=== PATIENT | female | born 1960 | race Caucasian/White ===

== ENCOUNTER 2018-12-04 22:54 | Emergency (ER) | payer BC ==
[~2018-12-04] VITALS: Ht 170.2 cm; Wt 68.2 kg
[~2018-12-04 22:54] MED LIST: MECL-111 PO; METH4TAB81 PO
--- NOTE | 2018-12-04 23:01 | NUR ---
SEIZURE PADS PLACED
[2018-12-04] MEDS ORDERED: LORazepam 2 mg/ml vial IV ONE (23:10)
[2018-12-04] MEDS ORDERED: ondansetron/PF 4mg/2ml inj IV ONE (23:20)
[2018-12-04 23:23] LABS: BASOPHILS % (AUTO) 0.4 % (0-1); EOSINOPHILS # (AUTO) 0.1 X10'3 (0-0.9); EOSINOPHILS % (AUTO) 1.4 % (0-6); HEMOGLOBIN 14.7 g/dl (12.0-16.0); LYMPHOCYTES % (AUTO) 23.2 % (21-51); MEAN CORPUSCULAR HEMOGLOBIN 31.4 PG (27.0-31.0); MEAN CORPUSCULAR HGB CONC 34.2 g/dL (33.0-36.5); MEAN PLATELET VOLUME 10.6 FL (7.4-10.4); MONOCYTES # (AUTO) 0.5 X10'3 (0-0.9); NEUTROPHILS # (AUTO) 6.1 X10'3 (1.8-7.7); PLATELET COUNT 100 X10'3 (140-440); RED BLOOD COUNT 4.68 X10'6 (4.20-5.60); RED CELL DISTRIBUTION WIDTH 12.2 % (11.5-14.5); WHITE BLOOD COUNT 8.8 X10'3 (4.5-11.0)
[2018-12-04 23:27] LABS: ALANINE AMINOTRANSFERASE 37 U/L (12-78); ALBUMIN 3.9 G/DL (3.4-5.0); ALBUMIN/GLOBULIN RATIO 1.2 (1.1-1.5); ALKALINE PHOSPHATASE 78 IU/L (46-116); ANION GAP 13 (8-16); ASPARTATE AMINO TRANSFERASE 30 U/L (10-37); BILIRUBIN,TOTAL 0.3 MG/DL (0.1-1.0); BLOOD UREA NITROGEN 16 MG/DL (7-18); BUN/CREATININE RATIO 15.2 (6.6-38.0); CALCIUM 9.8 MG/DL (8.5-10.1); CHLORIDE 106 MMOL/L (99-107); CREATININE 1.05 MG/DL (0.40-0.90); GLUCOSE 119 MG/DL (70-104); LIPASE 197 U/L (73-393); MAGNESIUM 2.1 MG/DL (1.5-2.4); SODIUM 141 MMOL/L (135-145); TOTAL CARBON DIOXIDE 21.8 MMOL/L (24-32); TOTAL PROTEIN 7.2 G/DL (6.4-8.2); eGFR 54 ML/MIN
[2018-12-05] MEDS ORDERED: ONDA4TAB6 PO (00:12)
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
[2018-12-05] MEDS ORDERED: normal saline 1000ML IV soln IVB ONE (00:40)
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
--- NOTE | 2018-12-05 04:42 | NUR ---
CALLED YASHIRA MIRELES FOR [facility] AT 04:42. THEY WILL HAVE [employer] HERE AROUND 05:00-05:15.
[2018-12-05 04:54] VITALS: BP 116/56
== END 2018-12-05 05:29 | disposition home or self-care (01) ==
LOC: ER 22:55
DX: K52.9 Noninfective gastroenteritis and colitis, unspecified (principal); R32 Unspecified urinary incontinence; R56.9 Unspecified convulsions; E03.9 Hypothyroidism, unspecified; F10.99 Alcohol use, unspecified with unspecified alcohol-induced disorder; Z98.890 Other specified postprocedural states; Z79.899 Other long term (current) drug therapy; Y90.9 Presence of alcohol in blood, level not specified
CPT/HCPCS: 71045; 80053; 83690; 83735; 84100; 85025; 96361; 96374; 96375; 99284; J2060; J2405; J7030

== ENCOUNTER 2023-10-29 14:30 | Emergency (ER) | payer BC, OTHER ==
[~2023-10-29] VITALS: Ht 170.2 cm; Wt 77.3 kg
[~2023-10-29 14:30] MED LIST changes: -MECL-111 PO; +MECL-302 PO; +ONDA4TAB6 PO
[2023-10-29 14:35] VITALS: TEMP 98
[2023-10-29] MEDS: ibuprofen tablet 400 MG TABLET PO ONE (15:59)
[2023-10-29 16:06] VITALS: BP 128/76; PULSE 98; RESP 16; O2SAT 99
== END 2023-10-29 16:11 | disposition home or self-care (01) ==
LOC: ER 14:30
DX: G40.802 Other epilepsy, not intractable, without status epilepticus (principal); E03.9 Hypothyroidism, unspecified; Z79.52 Long term (current) use of systemic steroids; Z79.899 Other long term (current) drug therapy; Z72.89 Other problems related to lifestyle; Z98.890 Other specified postprocedural states
CPT/HCPCS: 70450; 99284; J7030; A6449

== ENCOUNTER 2023-11-04 10:03 | Emergency (ER) | payer OTHER ==
[~2023-11-04] VITALS: Ht 170.2 cm; Wt 78.1 kg
[2023-11-04 10:14] VITALS: BP 144/87; PULSE 93; RESP 18; O2SAT 98
[2023-11-04] MEDS: LIDOcaine 1% W/epiNEPHrine 1:100,000 20ml vial SQ ONE (13:22)
[2023-11-04] MEDS ORDERED: CEPH-585 PO (13:59)
[2023-11-04 14:38] VITALS: TEMP 98.1
== END 2023-11-04 14:40 | disposition home or self-care (01) ==
LOC: ER 10:04
DX: L91.0 Hypertrophic scar (principal); E03.9 Hypothyroidism, unspecified; Z79.52 Long term (current) use of systemic steroids; Z79.899 Other long term (current) drug therapy; Z98.890 Other specified postprocedural states; Z72.89 Other problems related to lifestyle
CPT/HCPCS: 10060; 73080; 99283

== ENCOUNTER 2024-03-10 04:50 | Emergency (ER) | payer OTHER ==
[~2024-03-10] VITALS: Ht 170.2 cm; Wt 81.4 kg
[2024-03-10 05:16] VITALS: BP 120/75; PULSE 98; RESP 16; TEMP 98.3; O2SAT 97
== END 2024-03-10 07:40 | disposition left against medical advice (07) ==
LOC: ER 04:51
DX: M79.621 Pain in right upper arm (principal); Z53.21 Procedure and treatment not carried out due to patient leaving prior to being seen by health care provider

== ENCOUNTER 2024-11-18 14:43 | Emergency (ER) | payer OTHER ==
[~2024-11-18] VITALS: Ht 170.2 cm; Wt 86.0 kg
[2024-11-18 14:44] VITALS: TEMP 97.6
[2024-11-18 15:28] LABS: MEAN PLATELET VOLUME 9.8 FL (7.4-10.4); RED CELL DISTRIBUTION WIDTH 12.9 % (11.5-14.5)
[2024-11-18] MEDS: Levetiracetam-NACL 500mg/100ml 100 ML IV ONE (15:33)
[2024-11-18 15:44] LABS: CREATININE 1.20 MG/DL (0.40-0.90); TOTAL CARBON DIOXIDE 23.8 MMOL/L (24-32); eCRCL 47 ML/MIN; eGFR 45 ML/MIN
--- NOTE | 2024-11-18 15:57 | RADIOLOGY REPORT ---
CT CT HEAD INDICATION: Fall injury COMPARISON: CT CT HEAD on DOS: 10/29/23 TECHNIQUE: CT of the head without intravenous contrast. RADIATION DOSE: CTDIvol: 56 mGy, DLP: 997 mGy*cm FINDINGS: There is no evidence of acute intracranial hemorrhage, extra-axial collection, mass effect, midline shift, herniation or hydrocephalus. The ventricles, sulci and cisterns are age appropriate. The quinteros-white differentiation is intact. The visualized paranasal sinuses and mastoid air cells are clear. The surrounding soft tissues and osseous structures are unremarkable. IMPRESSION: 1. No evidence of acute intracranial hemorrhage, mass effect or hydrocephalus.
--- NOTE | 2024-11-18 15:59 | RADIOLOGY REPORT ---
EXAM: CT CT CERVICAL SPINE INDICATION: Fall injury EXAM DATE: 11/18/2024 03:38 PM COMPARISON: CT CT HEAD on DOS: 11/18/24, CT CT HEAD on DOS: 10/29/23 TECHNIQUE: Multiple axial CT images of the cervical spine were obtained using bone algorithm. Axial and coronal reformatting was done. Bone and soft tissue windows were reviewed. Radiation Dose Information: CT Dose: CTDI volume is 21 mGy. Dose-length product is 457 mGy*cm FINDINGS: The cervical alignment is intact. No acute cervical spine fracture is identified. The vertebral body heights are intact. No suspicious osseous lesions are identified. Moderate degenerative changes throughout the cervical spine. There is no prevertebral soft tissue swelling. IMPRESSION: 1. No evidence of acute cervical spine fracture or traumatic malalignment. 2. Moderate degenerative changes throughout the cervical spine. All CT scans at this medical facility are performed using dose modulation techniques as appropriate to a performed exam including the following: Automated exposure control was utilized; adjustment of the MA and/or KV according to patient size; and use of iterative reconstruction technique.
--- NOTE | 2024-11-18 16:05 | Physician Documentation ---
History of Present Illness ~ Chief Complaint: Seizure Stated Complaint: SEIZURE Time Seen by MD: 15:09 OK to notify your PCP?: Yes Primary Medical Doctor: FELIBERTO CAICEDO Mode of Arrival: EMS HPI 64-year-old female patient with a history of seizure disorder on Keppra was brought to the emergency room by ambulance for breakthrough seizure about half a minute to a minute. No oral trauma. Brief episode of postictal. The patient told me that she missed Keppra dose yesterday but she took it today. She did not remember with a any head strike or how she fell. She came in with C-collar. Medication Reconciliation Allergies: Coded Allergies: No Known Allergies (Unverified , 11/04/23) Scheduled Methylprednisolone (Medrol Dosepak), 4 MG PO DAILY Ondansetron Hcl (Zofran), 1 TAB PO Q6H PRN Scheduled PRN Ibuprofen* (Motrin*), 800 MG PO Q8H PRN for moderate pain 4-6 Meclizine HCl (Meclizine HCl), 1 TAB PO Q8H PRN for dizziness Past Medical History Past Medical History: Seizures, Hypothyroidism Past Surgical History: abdominal surgery, orthopedic surgeries Alcohol Use: Occasionally Drug Use: none Lives with: Other Lives In: Home Occupation: employed Review of Systems ROS As stated above in the HPI, otherwise all systems are reviewed and negative. Physical Exam Vital Signs: Temperature: 97.6, Source: Oral, Heart Rate: 97, Respiratory Rate: 16, BP: 126/92, Pulse Oximetry: 100, Weight: 86.000 Oxygen Flow Rate: 0 Physical Exam Reviewed vital signs and they are well within normal range. Const: Not in acute cardiopulmonary distress the patient is feeling drowsy. Head: Atraumatic Eyes: Normal Conjunctiva ENT: Normal External Ears, Nose and Mouth. Moist mucous membranes. No oral trauma Neck: Full range of motion. No meningismus Resp: Clear to auscultation bilaterally. Normal work of breathing Cardio: Regular rate and rhythm, no murmurs. Skin well perfused Abd: Soft, non-tender, non-distended. Normal bowel sounds. No rebound or guarding Skin: No petechiae or rashes. Warm and dry Back: No midline or flank tenderness Ext: No cyanosis, or edema Neuro: Awake and alert GCS 15/15 and that is no focal neurological deficit. Psych: Normal Mood and Affect Progress Results/Orders Results/Orders Orders - JESSICA SEPULVEDA MD Ct Head (11/18/24 15:13) Ct Cervical Spine (11/18/24 ) Saline Lock (11/18/24 ) Completed Orders - JESSICA SEPULVEDA MD Ct Head (11/18/24 15:13) Ct Cervical Spine (11/18/24 ) Cbc/Diff (11/18/24 15:13) BMP (11/18/24 15:13) Levetiracetam-Nacl 500mg/100ml (Levetira (11/18/24 15:15) Ibuprofen Tablet (Motrin Tablet) (11/18/24 16:15) Acetaminophen 325mg Tablet (Tylenol Tabl (11/18/24 16:15) Laboratory Tests Test 11/18/24 15:22 White Blood Count 8.6 Red Blood Count 4.67 Hemoglobin 14.2 Hematocrit 41.0 Mean Corpuscular Volume 87.9 Mean Corpuscular Hemoglobin 30.3 Mean Corpuscular Hemoglobin Concent 34.5 Red Cell Distribution Width 12.9 Platelet Count 121 L Mean Platelet Volume 9.8 Neutrophils (%) (Auto) 73.2 Lymphocytes (%) (Auto) 18.1 L Monocytes (%) (Auto) 6.1 Eosinophils (%) (Auto) 1.8 Basophils (%) (Auto) 0.8 Neutrophils # (Auto) 6.3 Lymphocytes # (Auto) 1.6 Monocytes # (Auto) 0.5 Eosinophils # (Auto) 0.2 Basophils # (Auto) 0.1 CBC Comment Sodium Level 141 Potassium Level 3.7 Chloride Level 108 H Carbon Dioxide Level 23.8 L Anion Gap 9 Blood Urea Nitrogen 21 H Creatinine 1.20 H Estimated GFR/1.73 m2 45 BUN/Creatinine Ratio 17.5 Glucose Level 133 H Calcium Level 9.5 Albumin 3.4 Chemistry Comments Medical Decision Making Findings ER Course/Med. Decision Making REVIEW of RECORD(S): Previous medical records here and/or external medical records, such as that provided directly by the patient, by EMS and/or outside medical facilities, if available, were reviewed. COMORBIDITIES MDM During the physical examination, the findings suggestive of acute life- threatening condition such as JVD, tracheal deviation, acidotic breathing, noisy stridorous breath sounds, pulses paradoxus, muffled heart sounds, unequal breath sounds, abdominal rigidity and rebound tenderness, focal neurological deficits, cool clammy skin, severe hypotension, severe tachycardia or bradycardia are absent. Patient presenting for . Vital signs reviewed. Patient is hemodynamically stable and does not meet SIRS criteria. Patient appears nontoxic on exam. CT of the head and cervical spine without contrast is negative for acute pro cess. CBC and BMP is also unremarkable. TREATMENT/DISPOSITION: The patient's presentation is most consistent with a breakthrough seizure. I explained the findings to the patient and encouraged her to take her antiseizure medication regularly without missing a dose. We came to the shared decision-making that she will be discharged home. Patient does not have identifiable emergent medical condition that warrants inpatient medical care at this time. The patient is deemed safe for discharge with outpatient follow up. Prior to discharge I independently reviewed the patients past medical history, clinical risk factors, comorbidities, and social determinants of health and diagnostic studies. The patient appears to be a safe discharge home with close outpatient PCP follow-up I had extensive discussion with patient regarding management, disposition and follow up. Potential symptom etiology was discussed, and shared decision making occurred. They will return immediately if symptoms worsen, do not improve, or they have any further concerns. Prior to discharge all questions were addressed. The patient is aware that the purpose of this visit was to screen for an acute medical emergency requiring emergent stabilization. Chronic and occult conditions, including malignancies, have not been ruled out. If patient is unable to arrange follow-up as stated in the discharge instructions and further discussed with the patient directly, or their symptoms worsen/become more concerning, they are to return to the ER for reassessment immediately. Prior to leaving the department, the patient has a plan for discharge, has decision making capacity, and acknowledges an understanding of the verbal and written discharge instructions. SOCIAL DETERMINANTS: Patient demonstrates no obvious challenges to following up as an outpatient although did consider whether patient had any barriers to access care including homelessness, Food insecurity, Mental health, Substance abuse, Disabilities, Limited access to medical care, Difficulty finding transport, Insurance issues, Refusal of care or testing due to cost concerns. MEDICAL SCREENING: I have discussed with the patient the non-definitive nature of the emergency screening exam, diagnosis and the possibility of a variety of conditions which may present in atypically benign fashion and stressed the importance of close follow-up for definitive diagnosis and treatment. We discussed signs and symptoms that should be watched for which might indicate a more serious or new condition that would benefit from emergency reevaluation and the patient has verbalized understanding to this and my other detailed discharge instructions and promises compliance. I have referred him back to his primary physician of course for a more detailed evaluation and more definitive diagnoses. DISCLAIMER: Inadvertent spelling and grammatical errors are likely due to EMR/dictation software use and do not reflect on the overall quality of patient care. Note that the electronic time recorded on this note does not necessarily reflect the actual time of the patient encounter. Departure Disposition: 01 HOME / SELF CARE / HOMELESS Impression: Primary Impression: Breakthrough seizure Condition: Stable Discharge Instructions: Seizure, Adult Additional Instructions: Thank you for coming to our Emergency Department today. Please ask your nurse or provider if you have questions about your care today and do not leave until all your questions have been answered. Please use any medications given as directed and follow-up with your doctor (or the doctor you were referred to) in the next 1-3 days. Your primary care doctor can help to coordinate outpatient specialty care and provide authorization for specialty referral as needed. If you do not have a primary care doctor you may follow up at a [facility]. You may also use motrin and tylenol as needed for fever and/or pain unless instructed otherwise by your provider or nurse. Indications for more urgent follow-up have been discussed, but you may return to the Emergency Department at ANY time for any worrisome or worsening symptoms. [facility] Facilities: [facility] Facilities: [facility]: [facility] [place] Address:[address] [place] [address] [facility]: [place] Address:[address] [place] [address] [facility]: [facility] Address:[address] [place] [address] [facility] Address:[address] [place] [address] Registration Billing Pharmacy Referrals [facility] Address:[address] [place] [address] Referrals: NO PRIMARY CARE PROVIDER (PCP) Prescriptions Ibuprofen* (Motrin*) 400 Mg Tablet 800 MG PO Q8H PRN for moderate pain 4-6, #30 TAB Prov: JESSICA SEPULVEDA MD 11/18/24 Signature Scribe Signature: x Attestation: JESSICA Cerda MD Nov 18, 2024 16:05
[2024-11-18] MEDS: ibuprofen tablet 400 MG TABLET PO ONE (16:19)
[2024-11-18 16:28] VITALS: BP 141/84; PULSE 90; RESP 18; O2SAT 95
[2024-11-18] MEDS ORDERED: IBUP-1984 PO (16:59)
== END 2024-11-18 16:29 | disposition home or self-care (01) ==
LOC: ER 14:43
DX: G40.909 Epilepsy, unspecified, not intractable, without status epilepticus (principal); E03.9 Hypothyroidism, unspecified
CPT/HCPCS: 36415; 70450; 72125; 80048; 85025; 96374; 99285; J1953